=== PATIENT | female | born 1985 | race Caucasian/White ===

== ENCOUNTER 2019-11-04 23:13 | Emergency (ER) | payer SELFPAY ==
[~2019-11-04] VITALS: Ht 160 cm; Wt 67.1 kg
[2019-11-04 23:13] VITALS: BP_SYST 110
--- NOTE | 2019-11-04 23:40 | NUR ---
Patient does not wish to proceed with medical care recommended by Dr Larios. Patient given information related to possible complications, up to and including , which could occur as a result of leaving hospital at this time. Patient verbalizes understanding of risks involved leaving against medical advice. Patient has signed AMA form.
== END 2019-11-04 23:40 | disposition left against medical advice (07) ==
LOC: SED 23:13
DX: R56.9 Unspecified convulsions (principal)
CPT/HCPCS: 99283